=== PATIENT | female | born 1980 | race Caucasian/White ===

== ENCOUNTER 2019-12-22 01:16 | Emergency (ER) | payer MEDICAID ==
[~2019-12-22] VITALS: Ht 160 cm; Wt 59.0 kg
[2019-12-22 01:18] VITALS: Ht 160 cm; Wt 59.0 kg
[2019-12-22 02:54] VITALS: BP 168/92
== END 2019-12-22 02:54 | disposition other institution (70) ==
LOC: ED 01:16
DX: E11.65 Type 2 diabetes mellitus with hyperglycemia (principal); K02.9 Dental caries, unspecified; J45.909 Unspecified asthma, uncomplicated; Z32.02 Encounter for pregnancy test, result negative
CPT/HCPCS: 82962

== ENCOUNTER 2019-12-22 01:16 | Emergency (ER) | payer OTHER | END 2019-12-22 02:54 | disposition other institution (70) | LOC: ED 01:16 | DX: Z02.89 Encounter for other administrative examinations (principal) ==